=== PATIENT | female | born 1955 | race Caucasian/White ===

== ENCOUNTER 2017-09-07 10:03 | Inpatient (IN) | payer MEDICAID ==
[2017-09-07 10:09] VITALS: BMI 11.9
[2017-09-07] MEDS ORDERED: Sodium Chloride 0.9% 1,000 ML IV ONE (10:24)
--- NOTE | 2017-09-07 10:42 | C.PDOC ---
History Of Present Illness 61 year old female, whose PMHx includes seizures s/p brain aneurysm with cardiac stent, is brought to the ED by EMS requiring my immediate attention. As per EMS, patient was at a doctor's office today when she began feeling dizzy and became hypotensive. Upon ED arrival, patient was actively seizing at bedside. Patient was given Ativan and accuchek was ordered. As per ED nurse, patient denied chest pain and shortness of breath prior to seizure episode. Time Seen by Provider: 09/07/17 10:16 Chief Complaint (Nursing): Dizziness/Lightheaded History Per: Patient, EMS History/Exam Limitations: no limitations Onset/Duration Of Symptoms: Hrs Current Symptoms Are (Timing): Still Present Additional History Per: Patient, EMS Past Medical History Reviewed: Historical Data, Nursing Documentation, Vital Signs Vital Signs: Last Vital Signs Temp 98.3 F 09/08/17 04:53 Pulse 65 09/08/17 04:53 Resp 20 09/08/17 04:53 BP 110/74 09/08/17 04:53 Pulse Ox 97 09/08/17 04:53 - Medical History PMH: Seizures Surgical History: Cholecystectomy - [facility] Procedures ENDOSCOPIC SPHINCTEROTOMY AND PAPILLOTOMY (03/01/13) MEASURE OF CARDIAC SAMPL & PRESSURE, L HEART, PERC APPROACH (05/16/15) PLAIN RADIOGRAPHY OF LEFT HEART USING OTHER CONTRAST (05/16/15) PLAIN RADIOGRAPHY OF MULT COR ART USING OTH CONTRAST (05/16/15) Family History: States: Unknown Family Hx - Social History Hx Tobacco Use: Yes Hx Alcohol Use: Yes (1/week socially) Hx Substance Use: No - Immunization History Hx Tetanus Toxoid Vaccination: No Hx Influenza Vaccination: Yes Hx Pneumococcal Vaccination: No Review Of Systems Neurological: Positive for: Seizures, Dizziness Physical Exam - Physical Exam Appears: Non-toxic Skin: Normal Color, Warm, Dry Head: Atraumatic, Normacephalic Eye(s): bilateral: Normal Inspection Oral Mucosa: Moist Neck: Supple Chest: Symmetrical, No Deformity, No Tenderness Cardiovascular: Rhythm Regular, No Murmur Respiratory: Normal Breath Sounds, No Rales, No Rhonchi, No Wheezing Gastrointestinal/Abdominal: Soft, No Tenderness, No Guarding, No Rebound Extremity: Normal ROM, Capillary Refill (less than 2 seconds ) Neurological/Psych: Other (20-second seizure activity noted. patient in post- ictal state ) ED Course And Treatment - Laboratory Results Result Diagrams: 09/07/17 10:32 09/07/17 10:32 ECG: Interpreted By Me, Viewed By Me ECG Rhythm: Sinus Rhythm Interpretation Of ECG: Normal Sinus Rhythm at 95bpm. Normal intervals. Normal axis. ST segment depressions noted in leads V3-V6. No ST elevations. Rate From EC Critical Care Time - Critical Care Note Total Time (in mins): 40 Documented critical care: time excludes all time spent performing seperately billable procedures. Medical Decision Making Medical Decision Making: Assessment: seizure Plan: * bloodwork * urinalysis * CXR * EKG * CT Head * reassess and disposition Progress: Bloodwork, urinalysis, CXR, EKG, CT Head ordered and reviewed. Ativan IVP and IV Fluids administered. Patient improved after seizure. Patient states she hasn't take depakote in years. Will hold depakote for now. Case discussed with hospitalist, Dr. Mccray. Patient will be admitted for hypotension, dizziness, seizure, and high ammonia. Repeat ammonia ordered, patient denies alcohol use. Patient is now a x o x 3 1341: Case discussed with Dr. Cheng (neurologist [employer]). Advises to order 1 gram of Keppra IVP. Disposition Discussed With DrLuciano: Porfirio Mccray Counseled Patient/Family Regarding: Studies Performed, Diagnosis - Disposition Disposition: HOSPITALIZED Disposition Time: 12:10 Condition: FAIR - Clinical Impression Clinical Impression: Dizziness, Seizure, Hypotension - Scribe Statement The provider has reviewed the documentation as recorded by the Scribe (Caitlyn Renae) Provider Attestation: All medical record entries made by the Scribe were at my direction and personally dictated by me. I have reviewed the chart and agree that the record accurately reflects my personal performance of the history, physical exam, medical decision making, and the department course for this patient. I have also personally directed, reviewed, and agree with the discharge instructions and disposition.
[2017-09-07] MEDS ORDERED: Sodium Chloride 0.9% 1,000 ML ONE (10:46)
[2017-09-07 10:47] LABS: BASO % 0.4 % (0.0-2.0); EOS # 0.1 K/uL (0.0-0.7); EOS % 0.6 % (0.0-4.0); LYMPH # 3.8 K/uL (1.0-4.3); LYMPH % 41.4 % (20.0-40.0); MEAN CORPUSCULAR HEMOGLOBIN 30.5 pg (27.0-31.0); MEAN CORPUSCULAR HGB CONC 33.2 g/dL (33.0-37.0); MEAN PLATELET VOLUME 8.5 fL (7.2-11.7); MONO # 0.8 K/uL (0.0-0.8); MONO % 9.2 % (0.0-10.0); NEUT # 4.5 K/uL (1.8-7.0); NEUT % 48.4 % (50.0-75.0); NRBC % 0.9 % (0.0-2.0); RBC 4.35 Mil/uL (3.80-5.20); RED CELL DISTRIBUTION WIDTH 14.1 % (11.5-14.5); WHITE BLOOD COUNT 9.2 K/uL (4.8-10.8)
[2017-09-07 10:52] LABS: HEMOGLOBIN 13.3 g/dL (11.0-16.0)
[2017-09-07 10:53] LABS: MEAN CELL VOLUME 91.9 fL (81.0-99.0)
[2017-09-07 10:58] LABS: PROTHROMBIN TIME 11.5 SECONDS (9.7-12.2)
[2017-09-07 11:03] LABS: ALB/GLOB RATIO 1.4 (1.0-2.1); ALBUMIN 4.8 g/dL (3.5-5.0); ALT/SGPT 21 U/L (9-52); AST/SGOT 44 U/L (14-36); BLOOD UREA NITROGEN 18 mg/dL (7-17); GFR AFRICAN-AMERICAN > 60; GFR NON-AFRICAN AMERICAN > 60
[2017-09-07 11:21] LABS: CALCIUM 10.1 mg/dl (8.6-10.4)
[2017-09-07] MEDS ORDERED: Valproate 500 MG in Sodium Chloride 0.9% 100 ML IVPB ONE (11:22)
--- NOTE | 2017-09-07 11:24 | CT ---
PROCEDURE: CT HEAD WITHOUT CONTRAST. HISTORY: AMS COMPARISON: 05/16/2015 TECHNIQUE: Axial computed tomography images were obtained through the head/brain without intravenous contrast. Radiation dose: Total exam DLP = 1089.79 mGy-cm. This CT exam was performed using one or more of the following dose reduction techniques: Automated exposure control, adjustment of the mA and/or kV according to patient size, and/or use of iterative reconstruction technique. FINDINGS: HEMORRHAGE: No intracranial hemorrhage. BRAIN: No mass effect or edema. Minimal encephalomalacia right frontotemporal with widening of the sylvian fissure. This is unchanged compared to prior. Old right frontotemporal craniotomy. No evidence of acute infarct. VENTRICLES: Unremarkable. No hydrocephalus. 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 Unchanged. CALVARIUM: Unremarkable. PARANASAL SINUSES: Unremarkable as visualized. No significant inflammatory changes. MASTOID AIR CELLS: Unremarkable as visualized. No inflammatory changes. OTHER FINDINGS: None. IMPRESSION: No intracranial mass, hemorrhage or evidence of acute infarct. Old right frontotemporal craniotomy with minimal underlying encephalomalacia change. 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
--- NOTE | 2017-09-07 11:26 | RAD ---
PROCEDURE: CHEST RADIOGRAPH, 1 VIEW HISTORY: AMS COMPARISON: 05/16/2015. FINDINGS: LUNGS: Clear. PLEURA: No pneumothorax or pleural fluid seen. CARDIOVASCULAR: Normal. OSSEOUS STRUCTURES: No significant abnormalities. VISUALIZED UPPER ABDOMEN: Normal. OTHER FINDINGS: None. IMPRESSION: No active disease. No acute/significant interval changes.
[2017-09-07] MEDS ORDERED: levETIRAcetam 500 MG in Sodium Chloride 0.9% 100 ML IVPB STA (13:43)
[2017-09-07 13:49] LABS: SQUAMOUS EPITHIAL < 1 /hpf (0-5); URINE BACTERIA RARE (<OCC); URINE BILIRUBIN NEGATIVE (NEGATIVE); URINE BLOOD NEGATIVE (NEGATIVE); URINE CLARITY Clear (Clear); URINE COLOR Yellow (YELLOW); URINE GLUCOSE (UA) NORMAL (Normal); URINE LEUKOCYTE ESTERASE TRACE Leu/uL (Negative); URINE PROTEIN 1+ mg/dL (NEGATIVE); URINE UROBILINOGEN NORMAL mg/dL (0.2-1.0)
--- NOTE | 2017-09-07 13:58 | CP.PCM.HP ---
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 Haskins) for vertigo. Upon arrival, patient had a witnessed seizure. Patient was given 2 mg of ativan. She is currently awake, alert, and answering my questions appropriately. Patient admits to feeling dizzy, as if the arzate are moving, which is made worse by nodding her head up and down. Patient says this started this morning when she woke up with associated frontal headache. She admits to chills and nausea that she has had since Monday, along with vomiting multiple times on Monday followed by an episode of hematemasis while she was at work. Patient says she was coughing up blood after. Patient admits to multiple episodes of diarrhea last Monday that was so bad that she needed to wear a diaper. She denies seeing any blood in her stool. Patient notes she has been eating salads with juvenal lettuce. CT head in the ED showed "giant cisterna magna vs. arachnoid cyst" PMD: Dr. Haskins PMH: HTN, HLD, CAD s/p cardiac stent, mitral valve prolapse, and brain anyeurysm (clipped) with resulting seizures Meds: ASA 81 mg QD, Ramipril 2.5 mg QD, Simvastatin 40 mg QD, Folic acid 2 mg QD , Meclizine 25 mg QD PRN Allergies: cat hair, NKDA PSH: cardiac stent x1, breast augmentation FH: father from prostate cancer with mets to the brain; mother with breast cancer; sister with ovarian cancer; other sister and aunts with unspecified cancer SH: denies tobacco, alcohol, and drug use; lives alone; works in real estate Present on Admission - Present on Admission Any Indicators Present on Admission: No Review of Systems - Constitutional Constitutional: Chills, Fatigue, Headache. absent: Fever - EENT Eyes: absent: Change in Vision Ears: Dizziness Nose/Mouth/Throat: absent: Nasal Congestion, Sore Throat - Cardiovascular Cardiovascular: Palpitations. absent: Chest Pain, Dyspnea - Respiratory Respiratory: Hemoptysis (secondary to hematemesis) - Gastrointestinal Gastrointestinal: Abdominal Pain, Cramping, Diarrhea, Hematemesis, Nausea. absent: Hematochezia, Melena - Genitourinary Genitourinary: Urinary Frequency. absent: Dysuria, Hematuria, Urinary Hesitance , Urinary Urgency - Musculoskeletal Musculoskeletal: absent: Numbness, Tingling - Neurological Neurological: Confusion, Headaches, Vertigo. absent: Numbness, Focal Weakness Past Patient History - Infectious Disease Hx of Infectious Diseases: None - Past Medical History & Family History Past Medical History?: Yes - Past Social History Smoking Status: Light Smoker < 10 Cigarettes Daily - NEUROLOGICAL Hx Seizures: Yes - MUSCULOSKELETAL/RHEUMATOLOGICAL Hx Falls: No - PSYCHIATRIC Hx Substance Use: No - SURGICAL HISTORY Hx Cholecystectomy: Yes - ANESTHESIA Hx Anesthesia: Yes Meds Allergies/Adverse Reactions: Allergies Allergy/AdvReac Type Severity Reaction Status Date / Time strawberries Allergy SWELLING Uncoded 05/17/15 07:12 Physical Exam - Constitutional Appears: Non-toxic, No Acute Distress - Head Exam Head Exam: ATRAUMATIC, NORMAL INSPECTION, NORMOCEPHALIC - Eye Exam Eye Exam: EOMI, Normal appearance, PERRL. absent: Scleral icterus - ENT Exam ENT Exam: Mucous Membranes Moist Additional comments: lac with bruising to left distal, lateral part of tongue - Respiratory Exam Respiratory Exam: Clear to Auscultation Bilateral, NORMAL BREATHING PATTERN. absent: Accessory Muscle Use, Rales, Rhonchi, Wheezes, Respiratory Distress - Cardiovascular Exam Cardiovascular Exam: RRR, +S1, +S2, Systolic Murmur. absent: Bradycardia, Tachycardia - GI/Abdominal Exam GI & Abdominal Exam: Guarding (voluntary), Normal Bowel Sounds, Soft, Tenderness (epigastric). absent: Distended - Extremities Exam Extremities exam: Positive for: normal inspection. Negative for: calf tenderness, pedal edema - Neurological Exam Neurological exam: Alert, CN II-XII Intact, Oriented x3 - Expanded Neurological Exam Expanded Cranial nerves: EOM's Intact: Normal, Facial Palsey w/Forehead Movement: Normal , Facial Palsey w/o Forehead Movement: Normal, Facial Sensation: Normal, Nystagmus: Normal, Tongue Deviation: Normal Cerebellar Function: Finger to Nose: Normal, Heel to Quintana: Normal Coma Scale Eye Opening: SPONTANEOUS Coma Scale Motor Response: OBEYS COMMANDS Coma Scale Verbal: Oriented Coma Scale Total: 15 - Psychiatric Exam Psychiatric exam: Normal Affect, Normal Mood - Skin Skin Exam: Dry, Intact, Normal Color, Warm Results - Vital Signs Recent Vital Signs: Last Vital Signs Temp Pulse 80 09/07/17 12:15 Resp 20 09/07/17 12:15 BP 122/67 09/07/17 12:15 Pulse Ox 100 09/07/17 12:15 - Labs Result Diagrams: 09/07/17 10:32 09/07/17 10:32 Labs: Laboratory Results - last 24 hr 09/07/17 09/07/17 09/07/17 10:09 10:32 10:32 WBC 9.2 RBC 4.35 Hgb 13.3 D Hct 40.0 MCV 91.9 D MCH 30.5 MCHC 33.2 RDW 14.1 Plt Count 303 MPV 8.5 Neut % (Auto) 48.4 L Lymph % (Auto) 41.4 H Bucks % (Auto) 9.2 Eos % (Auto) 0.6 Baso % (Auto) 0.4 Neut # (Auto) 4.5 Lymph # (Auto) 3.8 Bucks # (Auto) 0.8 Eos # (Auto) 0.1 Baso # (Auto) 0.0 PT INR APTT Sodium 150 H Potassium 3.6 Chloride 107 Carbon Dioxide 16 L Anion Gap 30 H BUN 18 H Creatinine 0.8 Est GFR ( Amer) > 60 Est GFR (Non-Af Amer) > 60 POC Glucose (mg/dL) 98 Random Glucose 115 H Calcium 10.1 Total Bilirubin 0.8 AST 44 H ALT 21 Alkaline Phosphatase 71 Ammonia Troponin I < 0.0120 Total Protein 8.3 Albumin 4.8 Globulin 3.5 Albumin/Globulin Ratio 1.4 Urine Color Urine Clarity Urine pH Ur Specific Effie Urine Protein Urine Glucose (UA) Urine Ketones Urine Blood Urine Nitrate Urine Bilirubin Urine Urobilinogen Ur Leukocyte Esterase Urine WBC (Auto) Urine RBC (Auto) Ur Squamous Epith Cells Urine Bacteria Valproic Acid 09/07/17 09/07/17 09/07/17 10:32 10:32 10:32 WBC RBC Hgb Hct MCV MCH MCHC RDW Plt Count MPV Neut % (Auto) Lymph % (Auto) Bucks % (Auto) Eos % (Auto) Baso % (Auto) Neut # (Auto) Lymph # (Auto) Bucks # (Auto) Eos # (Auto) Baso # (Auto) PT 11.5 INR 1.0 APTT 27 Sodium Potassium Chloride Carbon Dioxide Anion Gap BUN Creatinine Est GFR ( Amer) Est GFR (Non-Af Amer) POC Glucose (mg/dL) Random Glucose Calcium Total Bilirubin AST ALT Alkaline Phosphatase Ammonia 94 H D Troponin I Total Protein Albumin Globulin Albumin/Globulin Ratio Urine Color Urine Clarity Urine pH Ur Specific Effie Urine Protein Urine Glucose (UA) Urine Ketones Urine Blood Urine Nitrate Urine Bilirubin Urine Urobilinogen Ur Leukocyte Esterase Urine WBC (Auto) Urine RBC (Auto) Ur Squamous Epith Cells Urine Bacteria Valproic Acid < 10.0 L 09/07/17 13:39 WBC RBC Hgb Hct MCV MCH MCHC RDW Plt Count MPV Neut % (Auto) Lymph % (Auto) Bucks % (Auto) Eos % (Auto) Baso % (Auto) Neut # (Auto) Lymph # (Auto) Bucks # (Auto) Eos # (Auto) Baso # (Auto) PT INR APTT Sodium Potassium Chloride Carbon Dioxide Anion Gap BUN Creatinine Est GFR ( Amer) Est GFR (Non-Af Amer) POC Glucose (mg/dL) Random Glucose Calcium Total Bilirubin AST ALT Alkaline Phosphatase Ammonia Troponin I Total Protein Albumin Globulin Albumin/Globulin Ratio Urine Color Yellow Urine Clarity Clear Urine pH 5.0 Ur Specific Effie 1.018 Urine Protein 1+ H Urine Glucose (UA) Normal Urine Ketones Negative Urine Blood Negative Urine Nitrate Negative Urine Bilirubin Negative Urine Urobilinogen Normal Ur Leukocyte Esterase Trace Urine WBC (Auto) 7 H Urine RBC (Auto) 1 Ur Squamous Epith Cells < 1 Urine Bacteria Rare Valproic Acid Assessment & Plan - Assessment and Plan (Free Text) Plan: Abdominal pain with nausea and diarrhea * GI consulted (Dr. Bran), help appreciated * f/u stool culture * f/u shiga toxin * f/u CT abdomen/pelvis with PO contrast Meds/fluids: * Zofran prn * Cipro 500 mg PO BID * Protonix * NS @125 cc/h Seizure * Neuro consulted (Dr. Cheng), help appreciated * Keppra 500 mg, Valproate 500 mg, Meclizine 25 mg, and Ativan 2mg given in ED * Seizure and fall precautions * Neuro checks Imaging: * CT Head: No intracranial mass, hemorrhage or evidence of acute infarct. Old right frontotemporal craniotomy with minimal underlying encephalomalacia change. 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 Meds: * Ativan 1 mg IV PRN Vertigo * Neuro consulted (Dr. Cheng), help appreciated * Fall precautions * Imaging as above Meds: * Meclazine 25 mg QD PRN Hypotension in ED with history of HTN * Hold home SURINDER inhibitor due to hypotension HLD * Crestor 10 mg PO HS (home med non formulary) * f/u lipid panel Prophylaxis * DVT: c/i due to history of intracranial bleed and hematemesis * GI: Protonix 40 mg IV Q12H
--- NOTE | 2017-09-07 14:22 | CP.PCM.CON ---
<Chace Craven - Last Filed: 09/07/17 17:17> History of Present Illness - History of Present Illness History of Present Illness: PGY5 GI Fellow Consult Note Patient is a 61yo female with a PMHx significant for ruptured cerebral aneurysm s/p clipping in 1996, prior NSTEMI/CAD s/p PCI in 2015 with stent to LAD, mitral valve prolapse, seizure d/o (not on medication), dyslipidemia who presented to the ED for worsening diarrhea, dizziness and generalized malaise. Symptoms began Monday afternoon after lunch where she ate salad. State she developed abdominal cramping pain along with diarrhea. Diarrhea continued to worsen with voluminous liquid stool nearly every hour requiring her to wear an adult diaper to work this week. She became nauseated on Monday and vomited multiple times, noticing some pink emesis on her final bout. She went to her primary provider today where she became very dizzy, lightheaded and hypotensive and thus EMS was called to transport patient to the ED. Upon arrival, patient suffered a witnessed seizure and was given Ativan. Currently, she is postictal with some confusion about the details surrounding today's events. Admits to ongoing abdominal pain and nausea. 12 system ROS limited given recent seizure and postictal state PMHx: See HPI PSHx: Aneurysm clip (1996), Cholecystectomy (1986), PCI (2015) FHx: Mother - CAD; Sister - stage 4 stomach cancer (age 52) Social: Denies tobacco, alcohol or illicit drug use Endo: ERCP - 02/2013 - Papillary stenosis Patient states history of esophageal strictures requiring Bougie therapy - not documented in our system Past Patient History - Infectious Disease Hx of Infectious Diseases: None - Past Medical History & Family History Past Medical History?: Yes - Past Social History Smoking Status: Light Smoker < 10 Cigarettes Daily - NEUROLOGICAL Hx Seizures: Yes - MUSCULOSKELETAL/RHEUMATOLOGICAL Hx Falls: No - PSYCHIATRIC Hx Substance Use: No - SURGICAL HISTORY Hx Cholecystectomy: Yes - ANESTHESIA Hx Anesthesia: Yes Meds Allergies/Adverse Reactions: Allergies Allergy/AdvReac Type Severity Reaction Status Date / Time strawberries Allergy SWELLING Uncoded 05/17/15 07:12 - Medications Medications: Current Medications Lorazepam (Ativan) 1 mg IVP Q6H PRN PRN Reason: Seizure activity Pantoprazole Sodium (Protonix Inj) 40 mg IVP Q12H [facility] Last Admin: 09/07/17 14:07 Dose: 40 mg Physical Exam - Constitutional Appears: No Acute Distress, Confused - Eye Exam Eye Exam: EOMI, PERRL - ENT Exam ENT Exam: Mucous Membranes Moist Additional comments: bruise/hematoma on left lateral and inferior portion of tongue - Respiratory Exam Respiratory Exam: Clear to Auscultation Bilateral. absent: Rales, Rhonchi, Wheezes - Cardiovascular Exam Cardiovascular Exam: RRR, +S1, +S2 - GI/Abdominal Exam GI & Abdominal Exam: Normal Bowel Sounds, Soft, Tenderness (LLQ, RLQ). absent: Distended, Firm, Guarding, Organomegaly, Rigid - Extremities Exam Extremities exam: Positive for: normal inspection. Negative for: pedal edema - Neurological Exam Neurological exam: Altered - Psychiatric Exam Psychiatric exam: Normal Affect, Normal Mood - Skin Skin Exam: Dry, Warm Results - Vital Signs Recent Vital Signs: Last Vital Signs Temp Pulse 79 09/07/17 13:49 Resp 18 09/07/17 13:49 BP 110/59 L 09/07/17 13:49 Pulse Ox 100 09/07/17 13:49 - Labs Result Diagrams: 09/07/17 10:32 09/07/17 10:32 Labs: Laboratory Results - last 24 hr 09/07/17 09/07/17 09/07/17 10:09 10:32 10:32 WBC 9.2 RBC 4.35 Hgb 13.3 D Hct 40.0 MCV 91.9 D MCH 30.5 MCHC 33.2 RDW 14.1 Plt Count 303 MPV 8.5 Neut % (Auto) 48.4 L Lymph % (Auto) 41.4 H [place] % (Auto) 9.2 Eos % (Auto) 0.6 Baso % (Auto) 0.4 Neut # (Auto) 4.5 Lymph # (Auto) 3.8 [place] # (Auto) 0.8 Eos # (Auto) 0.1 Baso # (Auto) 0.0 PT INR APTT Sodium 150 H Potassium 3.6 Chloride 107 Carbon Dioxide 16 L Anion Gap 30 H BUN 18 H Creatinine 0.8 Est GFR ( Amer) > 60 Est GFR (Non-Af Amer) > 60 POC Glucose (mg/dL) 98 Random Glucose 115 H Calcium 10.1 Total Bilirubin 0.8 AST 44 H ALT 21 Alkaline Phosphatase 71 Ammonia Troponin I < 0.0120 Total Protein 8.3 Albumin 4.8 Globulin 3.5 Albumin/Globulin Ratio 1.4 Urine Color Urine Clarity Urine pH Ur Specific [place] Urine Protein Urine Glucose (UA) Urine Ketones Urine Blood Urine Nitrate Urine Bilirubin Urine Urobilinogen Ur Leukocyte Esterase Urine WBC (Auto) Urine RBC (Auto) Ur Squamous Epith Cells Urine Bacteria Valproic Acid 09/07/17 09/07/17 09/07/17 10:32 10:32 10:32 WBC RBC Hgb Hct MCV MCH MCHC RDW Plt Count MPV Neut % (Auto) Lymph % (Auto) [place] % (Auto) Eos % (Auto) Baso % (Auto) Neut # (Auto) Lymph # (Auto) [place] # (Auto) Eos # (Auto) Baso # (Auto) PT 11.5 INR 1.0 APTT 27 Sodium Potassium Chloride Carbon Dioxide Anion Gap BUN Creatinine Est GFR ( Amer) Est GFR (Non-Af Amer) POC Glucose (mg/dL) Random Glucose Calcium Total Bilirubin AST ALT Alkaline Phosphatase Ammonia 94 H D Troponin I Total Protein Albumin Globulin Albumin/Globulin Ratio Urine Color Urine Clarity Urine pH Ur Specific [place] Urine Protein Urine Glucose (UA) Urine Ketones Urine Blood Urine Nitrate Urine Bilirubin Urine Urobilinogen Ur Leukocyte Esterase Urine WBC (Auto) Urine RBC (Auto) Ur Squamous Epith Cells Urine Bacteria Valproic Acid < 10.0 L 09/07/17 13:39 WBC RBC Hgb Hct MCV MCH MCHC RDW Plt Count MPV Neut % (Auto) Lymph % (Auto) [place] % (Auto) Eos % (Auto) Baso % (Auto) Neut # (Auto) Lymph # (Auto) [place] # (Auto) Eos # (Auto) Baso # (Auto) PT INR APTT Sodium Potassium Chloride Carbon Dioxide Anion Gap BUN Creatinine Est GFR ( Amer) Est GFR (Non-Af Amer) POC Glucose (mg/dL) Random Glucose Calcium Total Bilirubin AST ALT Alkaline Phosphatase Ammonia Troponin I Total Protein Albumin Globulin Albumin/Globulin Ratio Urine Color Yellow Urine Clarity Clear Urine pH 5.0 Ur Specific [place] 1.018 Urine Protein 1+ H Urine Glucose (UA) Normal Urine Ketones Negative Urine Blood Negative Urine Nitrate Negative Urine Bilirubin Negative Urine Urobilinogen Normal Ur Leukocyte Esterase Trace Urine WBC (Auto) 7 H Urine RBC (Auto) 1 Ur Squamous Epith Cells < 1 Urine Bacteria Rare Valproic Acid Assessment & Plan - Assessment and Plan (Free Text) Assessment: Patient is a 61yo female with a PMHx significant for ruptured cerebral aneurysm s/p clipping in 1996, prior NSTEMI/CAD s/p PCI in 2015 with stent to LAD, mitral valve prolapse, seizure d/o (not on medication), dyslipidemia who presented to the ED for worsening diarrhea, dizziness and generalized malaise -Abdominal pain/diarrhea/nausea/vomiting -Seizure d/o - witnessed event in ED -Postictal state -CAD s/p PCI Plan: -Recommend CT A/P with PO contrast to further evaluate abdominal pain in setting of ongoing diarrhea -Stool culture, Giardia Ag, Shiga toxin ordered -Known outbreak of E coli 2/2 juvenal lettuce ingestion - will consider this in differential - would hold off on antibiotics for now -Zofran as needed; consider scheduled dosing for 24H if persistent vomiting; no episodes since admission -IVF resuscitation -Nonadherent with seizure medication at home; not currently using Plavix as med rec suggests - Date & Time Date: 09/07/17 Time: 14:00 <Rudy Rushing - Last Filed: 09/07/17 18:44> Meds - Medications Medications: Current Medications Folic Acid (Folic Acid) 1 mg PO DAILY [facility] Sodium Chloride (Sodium Chloride 0.9%) 1,000 mls @ 125 mls/hr IV .Q8H [facility] Last Admin: 09/07/17 16:17 Dose: 125 mls/hr Levetiracetam 500 mg/ Dextrose 105 mls @ 420 mls/hr IVPB Q12H [facility] Last Admin: 09/07/17 17:34 Dose: 420 mls/hr Lorazepam (Ativan) 1 mg IVP Q6H PRN PRN Reason: Seizure activity Meclizine HCl (Antivert) 25 mg PO DAILY PRN PRN Reason: Dizziness Ondansetron HCl (Zofran Inj) 4 mg IVP Q6H PRN PRN Reason: Nausea/Vomiting Pantoprazole Sodium (Protonix Inj) 40 mg IVP Q12H [facility] Last Admin: 09/07/17 14:07 Dose: 40 mg Rosuvastatin Calcium (Crestor) 10 mg PO HS [facility] Results - Vital Signs Recent Vital Signs: Last Vital Signs Temp Pulse 67 09/07/17 17:02 Resp 18 09/07/17 17:02 BP 111/61 09/07/17 17:02 Pulse Ox 99 09/07/17 17:02 - Labs Result Diagrams: 09/07/17 10:32 09/07/17 10:32 Labs: Laboratory Results - last 24 hr 09/07/17 09/07/17 09/07/17 10:09 10:32 10:32 WBC 9.2 RBC 4.35 Hgb 13.3 D Hct 40.0 MCV 91.9 D MCH 30.5 MCHC 33.2 RDW 14.1 Plt Count 303 MPV 8.5 Neut % (Auto) 48.4 L Lymph % (Auto) 41.4 H [place] % (Auto) 9.2 Eos % (Auto) 0.6 Baso % (Auto) 0.4 Neut # (Auto) 4.5 Lymph # (Auto) 3.8 [place] # (Auto) 0.8 Eos # (Auto) 0.1 Baso # (Auto) 0.0 PT INR APTT Sodium 150 H Potassium 3.6 Chloride 107 Carbon Dioxide 16 L Anion Gap 30 H BUN 18 H Creatinine 0.8 Est GFR ( Amer) > 60 Est GFR (Non-Af Amer) > 60 POC Glucose (mg/dL) 98 Random Glucose 115 H Calcium 10.1 Total Bilirubin 0.8 AST 44 H ALT 21 Alkaline Phosphatase 71 Ammonia Troponin I < 0.0120 Total Protein 8.3 Albumin 4.8 Globulin 3.5 Albumin/Globulin Ratio 1.4 Urine Color Urine Clarity Urine pH Ur Specific [place] Urine Protein Urine Glucose (UA) Urine Ketones Urine Blood Urine Nitrate Urine Bilirubin Urine Urobilinogen Ur Leukocyte Esterase Urine WBC (Auto) Urine RBC (Auto) Ur Squamous Epith Cells Urine Bacteria Valproic Acid 09/07/17 09/07/17 09/07/17 10:32 10:32 10:32 WBC RBC Hgb Hct MCV MCH MCHC RDW Plt Count MPV Neut % (Auto) Lymph % (Auto) [place] % (Auto) Eos % (Auto) Baso % (Auto) Neut # (Auto) Lymph # (Auto) [place] # (Auto) Eos # (Auto) Baso # (Auto) PT 11.5 INR 1.0 APTT 27 Sodium Potassium Chloride Carbon Dioxide Anion Gap BUN Creatinine Est GFR ( Amer) Est GFR (Non-Af Amer) POC Glucose (mg/dL) Random Glucose Calcium Total Bilirubin AST ALT Alkaline Phosphatase Ammonia 94 H D Troponin I Total Protein Albumin Globulin Albumin/Globulin Ratio Urine Color Urine Clarity Urine pH Ur Specific [place] Urine Protein Urine Glucose (UA) Urine Ketones Urine Blood Urine Nitrate Urine Bilirubin Urine Urobilinogen Ur Leukocyte Esterase Urine WBC (Auto) Urine RBC (Auto) Ur Squamous Epith Cells Urine Bacteria Valproic Acid < 10.0 L 09/07/17 09/07/17 13:39 17:38 WBC RBC Hgb Hct MCV MCH MCHC RDW Plt Count MPV Neut % (Auto) Lymph % (Auto) [place] % (Auto) Eos % (Auto) Baso % (Auto) Neut # (Auto) Lymph # (Auto) [place] # (Auto) Eos # (Auto) Baso # (Auto) PT INR APTT Sodium Potassium Chloride Carbon Dioxide Anion Gap BUN Creatinine Est GFR ( Amer) Est GFR (Non-Af Amer) POC Glucose (mg/dL) Random Glucose Calcium Total Bilirubin AST ALT Alkaline Phosphatase Ammonia < 9 L Troponin I Total Protein Albumin Globulin Albumin/Globulin Ratio Urine Color Yellow Urine Clarity Clear Urine pH 5.0 Ur Specific [place] 1.018 Urine Protein 1+ H Urine Glucose (UA) Normal Urine Ketones Negative Urine Blood Negative Urine Nitrate Negative Urine Bilirubin Negative Urine Urobilinogen Normal Ur Leukocyte Esterase Trace Urine WBC (Auto) 7 H Urine RBC (Auto) 1 Ur Squamous Epith Cells < 1 Urine Bacteria Rare Valproic Acid Attending/Attestation - Attestation I have personally seen and examined this patient.: Yes I have fully participated in the care of the patient.: Yes I have reviewed all pertinent clinical information: Yes Notes (Text): 09/07/17 18:37 I have seen and examined patient with GI fellow. Agree with above documentation with the following additions. In brief, this is a 61 year old female with history of cerebral aneurysm, CAD s/p stent, seizure disorder, hyperlipidemia who presents to hospital for progressive diarrhea and malaise. Symptoms began 3 days ago following consumption of salad when she developed generalized abdominal pain and watery diarrhea with up to 10-15 episodes daily along with multiple episodes of emesis with slight blood tinge towards end of episodes. On arrival to hospital patient was noted to have tonic-clonic seizure like activity. Currently she is seen resting in bed comfortably, post- ictal state with mild confusion and continues to endorse fatigue and abdominal pain. She has not had a bowel movement since early AM which she claims was more solid in consistency. She denies fever/chills, weight loss, rectal bleeding, sick contacts, or recent antibiotic use. She claims to have had prior EGDs requiring dilation for esophageal strictures, no prior colonoscopy. CAD s/p stent Seizure disorder Hyperlipidemia History of cerebral aneurysm Diarrhea, likely infectious given clinical scenario - Liquid diet as tolerated - Obtain stool studies (culture, c-difficile, giardia) - Would suggest holding antibiotic therapy for time being given consideration for enterotoxic ecoli due to recent national outbreak - Obtain CT imaging abdomen/pelvis - Follow up neurology recommendations - Patient would benefit from elective outpatient colonoscopy 6-8 weeks following resolution of acute symptoms. Will continue to monitor patient clinical course.
[2017-09-07] MEDS ORDERED: Iohexol 240 (50 ml) PO ONE (16:00)
[2017-09-07] MEDS ORDERED: Iohexol 240 (50 ml) ONE (16:10)
[2017-09-07] MEDS: Sodium Chloride 0.9% 1,000 ML IV SCH ×2 (16:17→22:04)
--- NOTE | 2017-09-07 17:29 | CP.PCM.CON ---
History of Present Illness - History of Present Illness History of Present Illness: Mrs. Alvarado is a 61-year-old woman with a past medical history of subarachnoid hemorrhage, s/p aneurysm treatment (over 30 years ago), who developed epilepsy and was on Depakote, but has not had seizures and has been off of it for many years, who states that this morning she saw flashing "lightning" like visions and felt light-headed/tired and developed blurry vision and headache. She then came to the ED where she was witnessed having a generalized tonic-clonic seizure. She had tongue biting and urinary incontinence. Her ammonia level was elevated, so we chose to not give her depakote. She was loaded with Keppra. She is not back to baseline, but complaining of feeling tired and depressed. CT scan of the head did not show any acute findings. Review of Systems - Review of Systems All systems: reviewed and no additional remarkable complaints except Past Patient History - Infectious Disease Hx of Infectious Diseases: None - Past Medical History & Family History Past Medical History?: Yes - Past Social History Smoking Status: Light Smoker < 10 Cigarettes Daily - NEUROLOGICAL Hx Seizures: Yes - MUSCULOSKELETAL/RHEUMATOLOGICAL Hx Falls: No - PSYCHIATRIC Hx Substance Use: No - SURGICAL HISTORY Hx Cholecystectomy: Yes - ANESTHESIA Hx Anesthesia: Yes Meds Allergies/Adverse Reactions: Allergies Allergy/AdvReac Type Severity Reaction Status Date / Time strawberries Allergy SWELLING Uncoded 05/17/15 07:12 - Medications Medications: Current Medications Folic Acid (Folic Acid) 1 mg PO DAILY [facility] Sodium Chloride (Sodium Chloride 0.9%) 1,000 mls @ 125 mls/hr IV .Q8H [facility] Last Admin: 09/07/17 16:17 Dose: 125 mls/hr Levetiracetam 500 mg/ Dextrose 105 mls @ 420 mls/hr IVPB Q12H [facility] Lorazepam (Ativan) 1 mg IVP Q6H PRN PRN Reason: Seizure activity Meclizine HCl (Antivert) 25 mg PO DAILY PRN PRN Reason: Dizziness Ondansetron HCl (Zofran Inj) 4 mg IVP Q6H PRN PRN Reason: Nausea/Vomiting Pantoprazole Sodium (Protonix Inj) 40 mg IVP Q12H [facility] Last Admin: 09/07/17 14:07 Dose: 40 mg Rosuvastatin Calcium (Crestor) 10 mg PO HS [facility] Physical Exam - Neurological Exam Neurological exam: Alert, CN II-XII Intact, Normal Gait, Oriented x3, Reflexes Normal Results - Vital Signs Recent Vital Signs: Last Vital Signs Temp Pulse 67 09/07/17 17:02 Resp 18 09/07/17 17:02 BP 111/61 09/07/17 17:02 Pulse Ox 99 09/07/17 17:02 - Labs Result Diagrams: 09/07/17 10:32 09/07/17 10:32 Labs: Laboratory Results - last 24 hr 09/07/17 09/07/17 09/07/17 10:09 10:32 10:32 WBC 9.2 RBC 4.35 Hgb 13.3 D Hct 40.0 MCV 91.9 D MCH 30.5 MCHC 33.2 RDW 14.1 Plt Count 303 MPV 8.5 Neut % (Auto) 48.4 L Lymph % (Auto) 41.4 H [place] % (Auto) 9.2 Eos % (Auto) 0.6 Baso % (Auto) 0.4 Neut # (Auto) 4.5 Lymph # (Auto) 3.8 [place] # (Auto) 0.8 Eos # (Auto) 0.1 Baso # (Auto) 0.0 PT INR APTT Sodium 150 H Potassium 3.6 Chloride 107 Carbon Dioxide 16 L Anion Gap 30 H BUN 18 H Creatinine 0.8 Est GFR ( Amer) > 60 Est GFR (Non-Af Amer) > 60 POC Glucose (mg/dL) 98 Random Glucose 115 H Calcium 10.1 Total Bilirubin 0.8 AST 44 H ALT 21 Alkaline Phosphatase 71 Ammonia Troponin I < 0.0120 Total Protein 8.3 Albumin 4.8 Globulin 3.5 Albumin/Globulin Ratio 1.4 Urine Color Urine Clarity Urine pH Ur Specific [place] Urine Protein Urine Glucose (UA) Urine Ketones Urine Blood Urine Nitrate Urine Bilirubin Urine Urobilinogen Ur Leukocyte Esterase Urine WBC (Auto) Urine RBC (Auto) Ur Squamous Epith Cells Urine Bacteria Valproic Acid 09/07/17 09/07/17 09/07/17 10:32 10:32 10:32 WBC RBC Hgb Hct MCV MCH MCHC RDW Plt Count MPV Neut % (Auto) Lymph % (Auto) [place] % (Auto) Eos % (Auto) Baso % (Auto) Neut # (Auto) Lymph # (Auto) [place] # (Auto) Eos # (Auto) Baso # (Auto) PT 11.5 INR 1.0 APTT 27 Sodium Potassium Chloride Carbon Dioxide Anion Gap BUN Creatinine Est GFR ( Amer) Est GFR (Non-Af Amer) POC Glucose (mg/dL) Random Glucose Calcium Total Bilirubin AST ALT Alkaline Phosphatase Ammonia 94 H D Troponin I Total Protein Albumin Globulin Albumin/Globulin Ratio Urine Color Urine Clarity Urine pH Ur Specific [place] Urine Protein Urine Glucose (UA) Urine Ketones Urine Blood Urine Nitrate Urine Bilirubin Urine Urobilinogen Ur Leukocyte Esterase Urine WBC (Auto) Urine RBC (Auto) Ur Squamous Epith Cells Urine Bacteria Valproic Acid < 10.0 L 09/07/17 13:39 WBC RBC Hgb Hct MCV MCH MCHC RDW Plt Count MPV Neut % (Auto) Lymph % (Auto) [place] % (Auto) Eos % (Auto) Baso % (Auto) Neut # (Auto) Lymph # (Auto) [place] # (Auto) Eos # (Auto) Baso # (Auto) PT INR APTT Sodium Potassium Chloride Carbon Dioxide Anion Gap BUN Creatinine Est GFR ( Amer) Est GFR (Non-Af Amer) POC Glucose (mg/dL) Random Glucose Calcium Total Bilirubin AST ALT Alkaline Phosphatase Ammonia Troponin I Total Protein Albumin Globulin Albumin/Globulin Ratio Urine Color Yellow Urine Clarity Clear Urine pH 5.0 Ur Specific [place] 1.018 Urine Protein 1+ H Urine Glucose (UA) Normal Urine Ketones Negative Urine Blood Negative Urine Nitrate Negative Urine Bilirubin Negative Urine Urobilinogen Normal Ur Leukocyte Esterase Trace Urine WBC (Auto) 7 H Urine RBC (Auto) 1 Ur Squamous Epith Cells < 1 Urine Bacteria Rare Valproic Acid Assessment & Plan (1) Seizure Assessment and Plan: Likely due to metabolic derangements with 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 I recommend starting Keppra 500 mg BID after a loading dose of 1000 mg IV. Continue management of underlying infectious or GI issues. PT/ OT eval is recommended. Thank you. Status: Acute Priority: High
--- NOTE | 2017-09-07 18:45 | CT ---
PROCEDURE: CT Abdomen and Pelvis with contrast HISTORY: hematemesis COMPARISON: 05/16/2015 CT thorax abdomen and pelvis TECHNIQUE: Oral contrast only. Radiation dose: Total exam DLP = 672.06 mGy-cm. This CT exam was performed using one or more of the following dose reduction techniques: Automated exposure control, adjustment of the mA and/or kV according to patient size, and/or use of iterative reconstruction technique. FINDINGS: LOWER THORAX: Trace atelectasis at the lung bases. Densely calcified bilateral breast implants LIVER: Unremarkable. No gross lesion or ductal dilatation. GALLBLADDER AND BILE DUCTS: Status post cholecystectomy. No abnormality is seen in the gallbladder fossa. PANCREAS: Unremarkable. No gross lesion or ductal dilatation. SPLEEN: Unremarkable. ADRENALS: Unremarkable. No mass. KIDNEYS AND URETERS: Unremarkable. No hydronephrosis. No solid mass. Incidental finding(s): Simple cyst lower pole left kidney again identified VASCULATURE: Unremarkable. No aortic aneurysm. BOWEL: Constipation without fecal impaction or obstruction. APPENDIX: Normal appendix. PERITONEUM: Unremarkable. No free fluid. No free air. LYMPH NODES: Unremarkable. No enlarged lymph nodes. BLADDER: Unremarkable. REPRODUCTIVE: Unremarkable. BONES: No acute fracture. OTHER FINDINGS: None. IMPRESSION: No significant or acute findings to account for/ related to the clinical presentation. Additional benign and/or incidental findings described above. No significant interval change compared to the prior examination(s).
[2017-09-08 00:56] VITALS: RESP 20
[2017-09-08] MEDS: Sodium Chloride 0.9% 1,000 ML IV SCH (01:45)
--- NOTE | 2017-09-08 06:51 | CP.PCM.PN ---
Subjective - Date & Time of Evaluation Date of Evaluation: 09/08/17 Time of Evaluation: 06:50 - Subjective Subjective: Ms. Alvarado was seen and examined at the bedside. She is alert, oriented in all spheres. She denies any headache, weakness, nausea, or vomiting. She is able to follow all simple commands. There was no untoward events overnight. Objective - Vital Signs/Intake and Output Vital Signs (last 24 hours): Temp Pulse Resp BP Pulse Ox 98.3 F 65 20 110/74 97 09/08/17 04:53 09/08/17 04:53 09/08/17 04:53 09/08/17 04:53 09/08/17 04:53 Intake and Output: 09/07/17 09/08/17 18:59 06:59 Intake Total 650 Balance 650 - Medications Medications: Current Medications Folic Acid (Folic Acid) 1 mg PO DAILY [facility] Sodium Chloride (Sodium Chloride 0.9%) 1,000 mls @ 125 mls/hr IV .Q8H [facility] Last Admin: 09/08/17 01:45 Dose: 125 mls/hr Levetiracetam 500 mg/ Dextrose 105 mls @ 420 mls/hr IVPB Q12H [facility] Last Admin: 09/08/17 05:00 Dose: 420 mls/hr Lorazepam (Ativan) 1 mg IVP Q6H PRN PRN Reason: Seizure activity Meclizine HCl (Antivert) 25 mg PO DAILY PRN PRN Reason: Dizziness Ondansetron HCl (Zofran Inj) 4 mg IVP Q6H PRN PRN Reason: Nausea/Vomiting Pantoprazole Sodium (Protonix Inj) 40 mg IVP Q12H [facility] Last Admin: 09/08/17 01:44 Dose: 40 mg Pneumococcal Polyvalent Vaccine (Pneumovax 23 Vaccine) 0.5 ml IM .ONCE ONE Stop: 09/09/17 10:01 Rosuvastatin Calcium (Crestor) 10 mg PO HS [facility] Last Admin: 09/07/17 21:13 Dose: 10 mg - Labs Labs: 09/07/17 10:32 09/07/17 10:32 PT 11.5 SECONDS (9.7-12.2) 09/07/17 10:32 INR 1.0 09/07/17 10:32 APTT 27 SECONDS (21-34) 09/07/17 10:32 - Constitutional Appears: No Acute Distress - Head Exam Head Exam: NORMAL INSPECTION - Neurological Exam Neurological Exam: Alert, Awake, CN II-XII Intact, Oriented x3 Neuro motor strength exam: Left Upper Extremity: 5, Right Upper Extremity: 5, Left Lower Extremity: 5, Right Lower Extremity: 5 Additional comments: Neurological unchanged from previous examination. Assessment and Plan (1) Seizure Assessment & Plan: Case discussed with Dr. Cheng, continue all current medical, physical and occupational therapies. Recommend to repeat CT scan of the head if patient will have an episode of sudden, severe and persistent headache. Status: Acute
[2017-09-08 08:09] VITALS: BP 107/69; PULSE 68; TEMP 98.2; O2SAT 95
[2017-09-08 08:34] LABS: BASO % 0.3 % (0.0-2.0); EOS % 0.2 % (0.0-4.0); LYMPH # 1.4 K/uL (1.0-4.3); MEAN CORPUSCULAR HEMOGLOBIN 30.5 pg (27.0-31.0); MEAN CORPUSCULAR HGB CONC 34.5 g/dL (33.0-37.0); MEAN PLATELET VOLUME 8.2 fL (7.2-11.7); MONO # 0.3 K/uL (0.0-0.8); MONO % 4.9 % (0.0-10.0); NEUT # 4.1 K/uL (1.8-7.0); NEUT % 70.6 % (50.0-75.0); RBC 3.58 Mil/uL (3.80-5.20); RED CELL DISTRIBUTION WIDTH 13.5 % (11.5-14.5); WHITE BLOOD COUNT 5.8 K/uL (4.8-10.8)
[2017-09-08 08:43] LABS: HEMOGLOBIN 10.9 g/dL (11.0-16.0); MEAN CELL VOLUME 88.5 fL (81.0-99.0)
[2017-09-08 08:51] LABS: ALB/GLOB RATIO 1.2 (1.0-2.1); ALBUMIN 3.4 g/dL (3.5-5.0); ALT/SGPT 25 U/L (9-52); AST/SGOT 32 U/L (14-36); BLOOD UREA NITROGEN 10 mg/dL (7-17); CALCIUM 8.5 mg/dl (8.6-10.4); GFR AFRICAN-AMERICAN > 60; GFR NON-AFRICAN AMERICAN > 60; HDL CHOLESTEROL 33 mg/dL (30-70)
[2017-09-08 08:57] LABS: LDL CHOLESTEROL 47 mg/dL (0-129)
--- NOTE | 2017-09-08 09:03 | CP.PCM.PN ---
<Chace Craven - Last Filed: 09/08/17 10:33> Subjective - Date & Time of Evaluation Date of Evaluation: 09/08/17 Time of Evaluation: 06:35 - Subjective Subjective: PGY5 GI Fellow Progress Note Patient seen and examined bedside this morning. She states she no longer has headache but remains somewhat dizzy/lightheaded. Denies any abdominal pain, nausea, vomiting or diarrhea. No BM since admission. +Flatus 12 system ROS performed and negative except where stated. Objective - Vital Signs/Intake and Output Vital Signs (last 24 hours): Temp Pulse Resp BP Pulse Ox 98.2 F 68 20 107/69 95 09/08/17 08:08 09/08/17 08:08 09/08/17 08:08 09/08/17 08:08 09/08/17 08:08 Intake and Output: 09/08/17 09/08/17 06:59 18:59 Intake Total 1850 Output Total 600 Balance 1250 - Medications Medications: Current Medications Folic Acid (Folic Acid) 1 mg PO DAILY [facility] Sodium Chloride (Sodium Chloride 0.9%) 1,000 mls @ 125 mls/hr IV .Q8H [facility] Last Admin: 09/08/17 01:45 Dose: 125 mls/hr Levetiracetam 500 mg/ Dextrose 105 mls @ 420 mls/hr IVPB Q12H [facility] Last Admin: 09/08/17 05:00 Dose: 420 mls/hr Lorazepam (Ativan) 1 mg IVP Q6H PRN PRN Reason: Seizure activity Meclizine HCl (Antivert) 25 mg PO DAILY PRN PRN Reason: Dizziness Ondansetron HCl (Zofran Inj) 4 mg IVP Q6H PRN PRN Reason: Nausea/Vomiting Pantoprazole Sodium (Protonix Inj) 40 mg IVP Q12H [facility] Last Admin: 09/08/17 01:44 Dose: 40 mg Pneumococcal Polyvalent Vaccine (Pneumovax 23 Vaccine) 0.5 ml IM .ONCE ONE Stop: 09/09/17 10:01 Rosuvastatin Calcium (Crestor) 10 mg PO HS [facility] Last Admin: 09/07/17 21:13 Dose: 10 mg - Labs Labs: 09/08/17 08:13 09/08/17 08:13 PT 11.5 SECONDS (9.7-12.2) 09/07/17 10:32 INR 1.0 09/07/17 10:32 APTT 27 SECONDS (21-34) 09/07/17 10:32 - Constitutional Appears: Non-toxic, No Acute Distress - Eye Exam Eye Exam: EOMI, PERRL - ENT Exam ENT Exam: Mucous Membranes Moist - Respiratory Exam Respiratory Exam: Clear to Ausculation Bilateral. absent: Rales, Rhonchi, Wheezes - Cardiovascular Exam Cardiovascular Exam: RRR, +S1, +S2 - GI/Abdominal Exam GI & Abdominal Exam: Soft, Normal Bowel Sounds. absent: Distended, Firm, Guarding, Rigid, Tenderness, Organomegaly - Extremities Exam Extremities Exam: Normal Inspection. absent: Pedal Edema - Neurological Exam Neurological Exam: Alert, Awake, Oriented x3 - Psychiatric Exam Psychiatric exam: Normal Affect, Normal Mood - Skin Skin Exam: Dry, Warm Assessment and Plan - Assessment and Plan (Free Text) Assessment: Patient is a 61yo female with a PMHx significant for ruptured cerebral aneurysm s/p clipping in 1996, prior NSTEMI/CAD s/p PCI in 2015 with stent to LAD, mitral valve prolapse, seizure d/o (not on medication), dyslipidemia who presented to the ED for worsening diarrhea, dizziness and generalized malaise -Abdominal pain/diarrhea/nausea/vomiting - resolved -Seizure d/o - witnessed event in ED -Postictal state -CAD s/p PCI Plan: -No longer has complaints of abdominal pain and no episodes of nausea/vomiting/ diarrhea since admission -Likely self-limiting viral infection which is now resolved -CT A/P reviewed - no acute abnormalities -Recommend advancing diet as tolerated -Patient does not need stool cultures in absence of symptoms -Management of ongoing neurologic issues per primary service/neurology -OK for D/C from GI standpoint <Ridge Payan - Last Filed: 09/08/17 11:12> Objective - Vital Signs/Intake and Output Vital Signs (last 24 hours): Temp Pulse Resp BP Pulse Ox 98.2 F 68 20 107/69 95 09/08/17 08:08 09/08/17 08:08 09/08/17 08:08 09/08/17 08:08 09/08/17 08:08 Intake and Output: 09/08/17 09/08/17 06:59 18:59 Intake Total 1850 Output Total 600 Balance 1250 - Medications Medications: Current Medications Folic Acid (Folic Acid) 1 mg PO DAILY [facility] Last Admin: 09/08/17 10:13 Dose: Not Given Sodium Chloride (Sodium Chloride 0.9%) 1,000 mls @ 125 mls/hr IV .Q8H [facility] Last Admin: 09/08/17 01:45 Dose: 125 mls/hr Levetiracetam 500 mg/ Dextrose 105 mls @ 420 mls/hr IVPB Q12H [facility] Last Admin: 09/08/17 05:00 Dose: 420 mls/hr Lorazepam (Ativan) 1 mg IVP Q6H PRN PRN Reason: Seizure activity Meclizine HCl (Antivert) 25 mg PO DAILY PRN PRN Reason: Dizziness Ondansetron HCl (Zofran Inj) 4 mg IVP Q6H PRN PRN Reason: Nausea/Vomiting Pantoprazole Sodium (Protonix Inj) 40 mg IVP Q12H [facility] Last Admin: 09/08/17 01:44 Dose: 40 mg Pneumococcal Polyvalent Vaccine (Pneumovax 23 Vaccine) 0.5 ml IM .ONCE ONE Stop: 09/09/17 10:01 Rosuvastatin Calcium (Crestor) 10 mg PO HS [facility] Last Admin: 09/07/17 21:13 Dose: 10 mg - Labs Labs: 09/08/17 08:13 09/08/17 08:13 PT 11.5 SECONDS (9.7-12.2) 09/07/17 10:32 INR 1.0 09/07/17 10:32 APTT 27 SECONDS (21-34) 09/07/17 10:32 Attending/Attestation - Attestation I have personally seen and examined this patient.: Yes I have fully participated in the care of the patient.: Yes I have reviewed all pertinent clinical information, including history, physical exam and plan: Yes Notes (Text): 09/08/17 11:11 61 year old female with h/o cerebral aneurysm with abdominal pain, n/v, diarrhea , possibly infectious gastroenteritis, now resolved. Advance diet to regular. Will sign off. Ok for dc from GI perspective.
--- NOTE | 2017-09-08 21:07 | CP.PCM.DIS ---
Provider - Provider Date of Admission: 09/07/17 12:07 Attending physician: Porfirio Mccray MD Time Spent in preparation of Discharge (in minutes): 35 Diagnosis - Discharge Diagnosis (1) Abdominal pain Status: Acute Hospital Course - Lab Results Lab Results: Most Recent Lab Values WBC 5.8 K/uL (4.8-10.8) 09/08/17 08:13 RBC 3.58 Mil/uL (3.80-5.20) L 09/08/17 08:13 Hgb 10.9 g/dL (11.0-16.0) L D 09/08/17 08:13 Hct 31.7 % (34.0-47.0) L 09/08/17 08:13 MCV 88.5 fL (81.0-99.0) D 09/08/17 08:13 MCH 30.5 pg (27.0-31.0) 09/08/17 08:13 MCHC 34.5 g/dL (33.0-37.0) 09/08/17 08:13 RDW 13.5 % (11.5-14.5) 09/08/17 08:13 Plt Count 234 K/uL (130-400) 09/08/17 08:13 MPV 8.2 fL (7.2-11.7) 09/08/17 08:13 Neut % (Auto) 70.6 % (50.0-75.0) 09/08/17 08:13 Lymph % (Auto) 24.0 % (20.0-40.0) 09/08/17 08:13 [place] % (Auto) 4.9 % (0.0-10.0) 09/08/17 08:13 Eos % (Auto) 0.2 % (0.0-4.0) 09/08/17 08:13 Baso % (Auto) 0.3 % (0.0-2.0) 09/08/17 08:13 Neut # (Auto) 4.1 K/uL (1.8-7.0) 09/08/17 08:13 Lymph # (Auto) 1.4 K/uL (1.0-4.3) 09/08/17 08:13 [place] # (Auto) 0.3 K/uL (0.0-0.8) 09/08/17 08:13 Eos # (Auto) 0.0 K/uL (0.0-0.7) 09/08/17 08:13 Baso # (Auto) 0.0 K/uL (0.0-0.2) 09/08/17 08:13 PT 11.5 SECONDS (9.7-12.2) 09/07/17 10:32 INR 1.0 09/07/17 10:32 APTT 27 SECONDS (21-34) 09/07/17 10:32 Sodium 142 mmol/L (132-148) 09/08/17 08:13 Potassium 3.8 mmol/L (3.6-5.2) 09/08/17 08:13 Chloride 109 mmol/L (98-107) H 09/08/17 08:13 Carbon Dioxide 25 mmol/L (22-30) 09/08/17 08:13 Anion Gap 12 (10-20) 09/08/17 08:13 BUN 10 mg/dL (7-17) 09/08/17 08:13 Creatinine 0.6 mg/dL (0.7-1.2) L 09/08/17 08:13 Est GFR ( Amer) > 60 09/08/17 08:13 Est GFR (Non-Af Amer) > 60 09/08/17 08:13 POC Glucose (mg/dL) 98 mg/dL (65-110) 09/07/17 10:09 Random Glucose 102 mg/dL (65-105) 09/08/17 08:13 Calcium 8.5 mg/dl (8.6-10.4) L 09/08/17 08:13 Total Bilirubin 0.7 mg/dL (0.2-1.3) 09/08/17 08:13 AST 32 U/L (14-36) 09/08/17 08:13 ALT 25 U/L (9-52) 09/08/17 08:13 Alkaline Phosphatase 47 U/L (38-126) 09/08/17 08:13 Ammonia < 9 umol/L (9-33) L 09/07/17 17:38 Troponin I < 0.0120 ng/mL (0.00-0.120) 09/07/17 10:32 Total Protein 6.3 g/dL (6.3-8.3) 09/08/17 08:13 Albumin 3.4 g/dL (3.5-5.0) L D 09/08/17 08:13 Globulin 2.9 gm/dL (2.2-3.9) 09/08/17 08:13 Albumin/Globulin Ratio 1.2 (1.0-2.1) 09/08/17 08:13 Triglycerides 86 mg/dL (0-149) D 09/08/17 08:13 Cholesterol 117 mg/dL (0-199) 09/08/17 08:13 LDL Cholesterol Direct 47 mg/dL (0-129) 09/08/17 08:13 HDL Cholesterol 33 mg/dL (30-70) 09/08/17 08:13 Urine Color Yellow (YELLOW) 09/07/17 13:39 Urine Clarity Clear (Clear) 09/07/17 13:39 Urine pH 5.0 (5.0-8.0) 09/07/17 13:39 Ur Specific [place] 1.018 (1.003-1.030) 09/07/17 13:39 Urine Protein 1+ mg/dL (NEGATIVE) H 09/07/17 13:39 Urine Glucose (UA) Normal mg/dL (Normal) 09/07/17 13:39 Urine Ketones Negative mg/dL (NEGATIVE) 09/07/17 13:39 Urine Blood Negative (NEGATIVE) 09/07/17 13:39 Urine Nitrate Negative (NEGATIVE) 09/07/17 13:39 Urine Bilirubin Negative (NEGATIVE) 09/07/17 13:39 Urine Urobilinogen Normal mg/dL (0.2-1.0) 09/07/17 13:39 Ur Leukocyte Esterase Trace Eliana/uL (Negative) 09/07/17 13:39 Urine WBC (Auto) 7 /hpf (0-5) H 09/07/17 13:39 Urine RBC (Auto) 1 /hpf (0-3) 09/07/17 13:39 Ur Squamous Epith Cells < 1 /hpf (0-5) 09/07/17 13:39 Urine Bacteria Rare (<OCC) 09/07/17 13:39 Valproic Acid < 10.0 ug/mL (50.0-100.0) L 09/07/17 10:32 - Hospital Course Hospital Course: HPI ( As per admission): Patient is a 61 year old female with a PMH of HTN, HLD, CAD s/p cardiac stent in 2016, mitral valve prolapse, and brain anyeurysm (clipped in 1996) with resulting seizures, who presents to the ED from her doctors office (Dr. Haskins) for vertigo. Upon arrival, patient had a witnessed seizure. Patient was given 2 mg of ativan. She is currently awake, alert, and answering my questions appropriately. Patient admits to feeling dizzy, as if the arzate are moving, which is made worse by nodding her head up and down. Patient says this started this morning when she woke up with associated frontal headache. She admits to chills and nausea that she has had since Monday, along with vomiting multiple times on Monday followed by an episode of hematemasis while she was at work. Patient says she was coughing up blood after. Patient admits to multiple episodes of diarrhea last Monday that was so bad that she needed to wear a diaper. She denies seeing any blood in her stool. Patient notes she has been eating salads with juevnal lettuce. Hospital Course: Patient was admitted with abdominal pain and diarrhea, CT abdomen/Pelvis noted no acute findings. GI consult was placed to Dr. Rushing, who diagnosed patient with gastroenteritis, therefore, recommendation was made for advance diet as tolerated and did not recommend stool cultures due to absence of symptoms. Neurology, Dr. Cheng was consulted due to noted seizure activity on admission, which resolved with ativan. Neurology recommended outpatient care and continuation of medical therapy. On the second day admission, patient was requesting to be discharge and even threatened to leave AMA. Patient discharge after clearance by medical team with appropriate instructions. Pertinent imaging: HEAD CT:No intracranial mass, hemorrhage or evidence of acute infarct. Old right frontotemporal craniotomy with minimal underlying encephalomalacia change. 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 CT Abdominal /pelvis: No significant or acute findings to account for/ related to the clinical presentation. This is a brief summary of event. For a complete course, please refer to the medical record Discharge Exam - Head Exam Head Exam: NORMAL INSPECTION - Eye Exam Eye Exam: EOMI, Normal appearance - ENT Exam ENT Exam: Mucous Membranes Moist - Respiratory Exam Respiratory Exam: NORMAL BREATHING PATTERN, UNREMARKABLE. absent: Prolonged Expiratory Phase, Wheezes, Respiratory Distress - Cardiovascular Exam Cardiovascular Exam: REGULAR RHYTHM, +S1, +S2 - GI/Abdominal Exam GI & Abdominal Exam: Normal Bowel Sounds, Soft. absent: Distended, Firm, Guarding, Hypoactive Bowel Sounds, Tenderness - Extremities Exam Extremities exam: normal inspection - Neurological Exam Neurological exam: Alert, Oriented x3 - Psychiatric Exam Psychiatric exam: Agitated, Anxious - Skin Skin Exam: Normal Color Discharge Plan - Discharge Medications Prescriptions: Levetiracetam [Keppra] 500 mg PO BID 30 Days #60 tablet - Follow Up Plan Condition: FAIR Disposition: HOME/ ROUTINE Instructions: Heart Healthy Diet, Seizures, Adult (DC), Levetiracetam, Acute Abdominal Pain (DC), Acute Abdominal Pain (GEN) Additional Instructions: Please discharge patient home Please resume your home medications: 1. ASA 81mg PO daily 2. Zocor 40mg PO daily 3. Folic acid 1 tab PO daily Please start the following new medication: 1. Keppra 500mg PO BID ( 1 tablet at 9am and 1 tablet at 9pm ) Please follow up with your primary care physician within a week of discharge Please follow up with an outpatient Neurology before recent seizure activity on admission and findings on CT Head: No intracranial mass, hemorrhage or evidence of acute infarct. Old right frontotemporal craniotomy with minimal underlying encephalomalacia change. 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 Please return to the hospital if symptoms resume within 2-3 days Please continue with hydration Please take seizure medication as instructed. Referrals: Izaiah Cheng MD [Staff Provider] -
--- NOTE | 2017-09-08 21:58 | CARD ---
APPROVED REPORT EKG Measurement Heart [id number] <Conclusion> Normal sinus rhythm ST & T wave abnormality, consider inferior ischemia Prolonged QT Abnormal ECG
[2017-09-09] MEDS ORDERED: Pneumococcal 23-Valent Vaccine IM ONE (10:00)
== END 2017-09-08 13:43 | disposition home or self-care (01) | DRG 813 ==
LOC: C.ER 10:03 → C.9E 12:07 → C.6T 17:02
PROVIDERS: ADMIT Internal Medicine; ATTEND Internal Medicine
DX: R10.9 Unspecified abdominal pain (principal); G40.409 Other generalized epilepsy and epileptic syndromes, not intractable, without status epilepticus; R32 Unspecified urinary incontinence; I67.1 Cerebral aneurysm, nonruptured; E78.5 Hyperlipidemia, unspecified; I10 Essential (primary) hypertension; I25.10 Atherosclerotic heart disease of native coronary artery without angina pectoris; I25.2 Old myocardial infarction; I34.1 Nonrheumatic mitral (valve) prolapse; Z80.0 Family history of malignant neoplasm of digestive organs; Z95.5 Presence of coronary angioplasty implant and graft; F17.210 Nicotine dependence, cigarettes, uncomplicated

== ENCOUNTER 2018-09-05 11:59 | Outpatient (CLI) | payer MEDICAID | END 2018-09-05 12:00 | disposition home or self-care (01) | LOC: C.RADH 11:59 | DX: R05 Cough (principal) ==